=== PATIENT | male | born 1975 | race Asian ===

== ENCOUNTER 2016-08-05 22:10 | Emergency (ER) | payer BC, MEDICAID ==
[~2016-08-05] VITALS: Ht 170.2 cm; Wt 88.5 kg
[~2016-08-05 22:10] MED LIST: ESCI20TA PO
[2016-08-05 22:20] VITALS: BP 115/81; PULSE 76; RESP 16; TEMP 97.8; O2SAT 98
--- NOTE | 2016-08-05 23:10 | NUR ---
Placed in room 02 . Placed on environmental monitoring specialist, blood pressure machine and pulse oximeter. To gown for exam. Side rails up. Report given to DELMAR Dawn.
--- NOTE | 2016-08-05 23:20 | NUR ---
Pt states that he has been having R sided hip pain/lower back that radiates to the lower leg for the past 15 days. Denies N and V. Pt rates it 02/03. Will continue to monitor. No other injuries or complaints mentioned/noted. No distress noted.
--- NOTE | 2016-08-05 23:20 | NUR ---
ER Dr. Arnold at bedside examining patient.
[2016-08-05] MEDS ORDERED: HYDROmorphone 1 MG INJ. 1 MG/ML AMPUL IVP ONE (23:30)
[2016-08-05] MEDS ORDERED: ONDANSETRON HCL 4 MG/2 ML VIAL IVP ONE (23:30)
[2016-08-05 23:39] LABS: BASOPHILS # (AUTO) 0.1 K/uL (0.0-0.2); BASOPHILS % (AUTO) 0.6 % (0.0-2.0); EOSINOPHILS # (AUTO) 0.3 K/uL (0.0-0.4); EOSINOPHILS % (AUTO) 2.8 % (0.0-4.0); LYMPHOCYTES # (AUTO) 2.9 K/uL (1.0-5.5); LYMPHOCYTES % (AUTO) 31.1 % (20.5-51.5); MEAN CORPUSCULAR HEMOGLOBIN 29 pg (27-31); MEAN CORPUSCULAR HGB CONC 33 % (32-36); MEAN CORPUSCULAR VOLUME 86 fL (79.0-98.0); MONOCYTES # (AUTO) 0.6 K/uL (0.0-1.0); MONOCYTES % (AUTO) 6.6 % (1.7-9.3); NEUTROPHILS # (AUTO) 5.4 K/uL (1.8-7.7); NEUTROPHILS % (AUTO) 58.9 % (40.0-70.0); PLATELET COUNT (AUTO) 319 K/uL (130-430); RED BLOOD CELL COUNT(AUTO) 5.26 MIL/uL (4.2-6.2); RED CELL DISTRIBUTION WIDTH 13.3 % (9.0-15.0); WHITE BLOOD COUNT (AUTO) 9.3 K/uL (4.8-10.8)
[2016-08-05 23:54] LABS: CALCIUM 8.7 mg/dL (8.4-11.0); CREATININE 1.06 mg/dL (0.55-1.30); POTASSIUM 3.5 mmol/L (3.5-5.1)
[2016-08-05 23:59] LABS: ALBUMIN 3.8 g/dL (3.4-4.8); TOTAL BILIRUBIN 0.2 mg/dL (0.0-1.0); TOTAL PROTEIN, SERUM 7.1 g/dL (6.4-8.3)
[2016-08-06 00:58] VITALS: BP 109/81; PULSE 68; RESP 16; TEMP 97.8; O2SAT 98
--- NOTE | 2016-08-06 00:58 | NUR ---
Patient given written and verbal discharge instructions and verbalizes understanding. ER MD discussed with patient the results and treatment provided. Patient in stable condition. ID arm band removed. IV catheter removed intact and dressing applied, no active bleeding. Rx of [place] and Motrin given. Patient educated on pain management and to follow up with PMD. Pain Scale 0/10. Opportunity for questions provided and answered. Dr. Clayton waltoned discharge without UA.
== END 2016-08-06 00:58 | disposition home or self-care (01) ==
LOC: SED 22:10
DX: M54.31 Sciatica, right side (principal); M25.551 Pain in right hip; F32.9 Major depressive disorder, single episode, unspecified
CPT/HCPCS: 36415; 72100; 73510; 80053; 85025; 96374; 96375; 99285; J1170; J2405; 73502

== ENCOUNTER 2016-08-20 12:21 | Emergency (ER) | payer BC, MEDICAID ==
[~2016-08-20] VITALS: Ht 165.1 cm; Wt 102.1 kg
[2016-08-20 12:21] VITALS: BP 122/87; PULSE 90; RESP 19; TEMP 98.7; O2SAT 97
--- NOTE | 2016-08-20 12:21 | NUR ---
BROUGHT BACK TO BED #8 AND TRIAGED, REPORT GIVEN TO KARON
--- NOTE | 2016-08-20 12:34 | NUR ---
ER at bedside examining patient.
--- NOTE | 2016-08-20 12:36 | NUR ---
pt came to ER by himself, c/o right lower low back radiates to right leg for one and half month. pt awake.alert,All ROM intact.tenderness to right lower back.
[2016-08-20] MEDS ORDERED: KETOROLAC TROMETHAMINE 30 MG VIAL IVP ONE (13:00)
--- NOTE | 2016-08-20 13:13 | NUR ---
# 20 gauge angiocath placed to right hand. Use of asceptic technique. Opsite placed over site. Blood return noted. No evidence of infiltration noted. Patient tolerated well.
[2016-08-20] MEDS ORDERED: KETOROLAC TROMETHAMINE 30 MG VIAL ONE (13:19)
[2016-08-20] MEDS ORDERED: HYDROmorphone 1 MG INJ. 1 MG/ML AMPUL IVP ONE (13:45)
[2016-08-20] MEDS ORDERED: ONDANSETRON HCL 4 MG/2 ML VIAL IVP ONE (13:45)
[2016-08-20] MEDS ORDERED: methylPREDNISolone SOD SUCC/PF 62.5 MG/ML VIAL IVP ONE (13:45)
--- NOTE | 2016-08-20 14:11 | NUR ---
Medicated. Pt states friend at bedside will take him home.
[2016-08-20 15:07] VITALS: BP 122/87; PULSE 90; RESP 19; TEMP 98.7; O2SAT 97
== END 2016-08-20 14:35 | disposition home or self-care (01) ==
LOC: SED 12:21
DX: M54.30 Sciatica, unspecified side (principal); F32.9 Major depressive disorder, single episode, unspecified
CPT/HCPCS: 96374; 96375; 99284; J1170; J1885; J2405; J2930